=== PATIENT | female | born 1980 | race Caucasian/White ===

== ENCOUNTER 2019-05-12 04:10 | Emergency (ER) | payer MEDICARE ==
[~2019-05-12] VITALS: Ht 172.7 cm; Wt 127.0 kg
[2019-05-12 05:09] LABS: CHLORIDE 109 mEq/L (98-107)
[2019-05-12 05:14] LABS: ETHANOL BLOOD 44 mg/dL
[2019-05-12 05:28] LABS: BASOPHILS % 1.2 % (0.0-2.0); EOSINOPHILS % 3.3 % (0.0-5.0); HEMATOCRIT. 36.3 % (36.0-48.0); HEMOGLOBIN. 11.7 g/dL (12.0-16.0); LYMPHOCYTES % 30.3 % (20.0-50.0); MEAN CORPUSCULAR VOLUME 77.3 fL (81.0-99.0); MEAN PLATELET VOLUME 6.7 fl (7.4-10.4); MONOCYTES % 8.6 % (2.0-8.0); NEUTROPHILS % 56.6 % (40.0-76.0); PLATELET 335 x1000/uL (130-400); RED BLOOD CELL COUNT 4.69 mill/uL (4.2-5.4); RED CELL DISTRIBUTION WIDTH 18.3 % (11.6-14.6)
[2019-05-12] MEDS: LITHIUM CARBONATE 150 MG CAPSULE PO SCH ×2 (05:37→13:03)
[2019-05-12] MEDS ORDERED: DIPHENHYDRAMINE 25MG CAPSULE PO ONE (06:00)
[2019-05-12 10:50] LABS: CLARITY URINE CLOUDY (CLEAR); COLOR URINE YELLOW (YELLOW); KETONES URINE NEGATIVE (NEGATIVE); LEUKOCYTE ESTERASE URINE 2+ (NEGATIVE); NITRITE URINE NEGATIVE (NEGATIVE); OCCULT BLOOD URINE NEGATIVE (NEGATIVE); PH URINE 5.5 (4.5-8.0); PROTEIN URINE NEGATIVE (NEGATIVE); SPECIFIC GRAVITY URINE 1.025 (1.005-1.030)
[2019-05-12] MEDS ORDERED: NICOTINE 7MG PATCH TD ONE (11:15)
[2019-05-12 11:34] LABS: *BARBITURATES SCREEN URINE NEGATIVE (NEGATIVE); *BENZODIAZEPINES SCREEN URINE NEGATIVE (NEGATIVE); *COCAINE SCREEN URINE NEGATIVE (NEGATIVE)
[2019-05-12 11:35] LABS: CANNABINOID URINE SCREEN NEGATIVE (NEGATIVE); METHADONE URINE SCREEN NEGATIVE (NEGATIVE); OPIATES URINE SCREEN NEGATIVE (NEGATIVE)
[2019-05-12 11:36] LABS: PHENCYCLIDINE URINE SCREEN NEGATIVE (NEGATIVE)
[2019-05-12 11:40] LABS: *AMPHETAMINES SCREEN URINE PRESUMTIVE POSITIVE (NEGATIVE)
[2019-05-12] MEDS ORDERED: CEPHALEXIN 250MG CAPSULE PO ONE (12:30)
[2019-05-12 17:49] VITALS: BP 125/76
== END 2019-05-12 19:28 | disposition home or self-care (01) ==
LOC: ER 04:10
DX: F15.129 Other stimulant abuse with intoxication, unspecified (principal); N39.0 Urinary tract infection, site not specified; F10.129 Alcohol abuse with intoxication, unspecified; F20.9 Schizophrenia, unspecified; F31.9 Bipolar disorder, unspecified; J45.909 Unspecified asthma, uncomplicated; R45.851 Suicidal ideations; I10 Essential (primary) hypertension; Y90.2 Blood alcohol level of 40-59 mg/100 ml
CPT/HCPCS: 36415; 80178; 80305; 80320; 81025; 82962; 99284; G0480

== ENCOUNTER 2019-05-12 22:23 | Emergency (ER) | payer MEDICARE ==
[~2019-05-12] VITALS: Ht 172.7 cm; Wt 104.0 kg
[2019-05-13 01:25] LABS: CHLORIDE 113 mEq/L (98-107)
[2019-05-13 01:28] LABS: BASOPHILS % 1.2 % (0.0-2.0); EOSINOPHILS % 3.2 % (0.0-5.0); HEMATOCRIT. 33.9 % (36.0-48.0); HEMOGLOBIN. 11.2 g/dL (12.0-16.0); LYMPHOCYTES % 37.9 % (20.0-50.0); MEAN CORPUSCULAR HEMOGLOBIN 25.2 pg (28.0-32.0); MEAN CORPUSCULAR VOLUME 76.7 fL (81.0-99.0); MEAN PLATELET VOLUME 6.5 fl (7.4-10.4); MONOCYTES % 6.1 % (2.0-8.0); NEUTROPHILS % 51.6 % (40.0-76.0); PLATELET 339 x1000/uL (130-400); RED BLOOD CELL COUNT 4.43 mill/uL (4.2-5.4)
[2019-05-13 01:29] LABS: ETHANOL BLOOD 139 mg/dL
[2019-05-13 02:04] LABS: CLARITY URINE CLEAR (CLEAR); COLOR URINE YELLOW (YELLOW); KETONES URINE NEGATIVE (NEGATIVE); LEUKOCYTE ESTERASE URINE NEGATIVE (NEGATIVE); NITRITE URINE NEGATIVE (NEGATIVE); OCCULT BLOOD URINE NEGATIVE (NEGATIVE); PROTEIN URINE NEGATIVE (NEGATIVE); SPECIFIC GRAVITY URINE 1.007 (1.005-1.030); UROBILINOGEN URINE 0.2 E.U./dL (0.2-1.0)
[2019-05-13 02:15] LABS: *AMPHETAMINES SCREEN URINE NEGATIVE (NEGATIVE); *BARBITURATES SCREEN URINE NEGATIVE (NEGATIVE); *BENZODIAZEPINES SCREEN URINE NEGATIVE (NEGATIVE); *COCAINE SCREEN URINE NEGATIVE (NEGATIVE); METHADONE URINE SCREEN NEGATIVE (NEGATIVE); OPIATES URINE SCREEN NEGATIVE (NEGATIVE)
[2019-05-13 02:16] LABS: CANNABINOID URINE SCREEN NEGATIVE (NEGATIVE); PHENCYCLIDINE URINE SCREEN NEGATIVE (NEGATIVE)
[2019-05-13] MEDS ORDERED: NICOTINE 7MG PATCH TD ONE (11:15)
[2019-05-14] MEDS ORDERED: NICOTINE 7MG PATCH TD ONE (11:45)
[2019-05-14 13:30] VITALS: BP 114/68
== END 2019-05-14 13:43 | disposition home or self-care (01) ==
LOC: ER 22:23
DX: F10.129 Alcohol abuse with intoxication, unspecified (principal); R51 Headache; F32.9 Major depressive disorder, single episode, unspecified; N39.0 Urinary tract infection, site not specified; R45.851 Suicidal ideations; J45.909 Unspecified asthma, uncomplicated; F17.210 Nicotine dependence, cigarettes, uncomplicated; F15.10 Other stimulant abuse, uncomplicated; F20.9 Schizophrenia, unspecified; Y90.6 Blood alcohol level of 120-199 mg/100 ml; Z90.49 Acquired absence of other specified parts of digestive tract; Z88.8 Allergy status to other drugs, medicaments and biological substances; W01.0XXA Fall on same level from slipping, tripping and stumbling without subsequent striking against object, initial encounter; Y93.89 Activity, other specified; Y92.89 Other specified places as the place of occurrence of the external cause
CPT/HCPCS: 81025; 99284

== ENCOUNTER 2020-10-21 14:43 | Emergency (ER) | payer MEDICARE, MEDICAID ==
[~2020-10-21] VITALS: Ht 162.6 cm; Wt 131.0 kg
[2020-10-21] MEDS ORDERED: LITHIUM CARBONATE 150 MG CAPSULE PO SCH (16:00)
[2020-10-21 16:23] VITALS: BP 123/87
== END 2020-10-21 16:24 | disposition home or self-care (01) ==
LOC: ER 14:43
DX: Z76.0 Encounter for issue of repeat prescription (principal); J45.909 Unspecified asthma, uncomplicated; Z90.49 Acquired absence of other specified parts of digestive tract; Z88.8 Allergy status to other drugs, medicaments and biological substances; Z98.890 Other specified postprocedural states
CPT/HCPCS: 99283

== ENCOUNTER 2020-10-24 11:24 | Emergency (ER) | payer MEDICARE, MEDICAID ==
[~2020-10-24] VITALS: Ht 170.2 cm; Wt 140.0 kg
[2020-10-24 12:48] LABS: COLOR URINE YELLOW (YELLOW); KETONES URINE NEGATIVE (NEGATIVE); LEUKOCYTE ESTERASE URINE NEGATIVE (NEGATIVE); NITRITE URINE NEGATIVE (NEGATIVE); OCCULT BLOOD URINE NEGATIVE (NEGATIVE); PH URINE 5.5 (4.5-8.0); PROTEIN URINE NEGATIVE (NEGATIVE); SPECIFIC GRAVITY URINE 1.015 (1.005-1.030); UROBILINOGEN URINE 0.2 E.U./dL (0.2-1.0)
[2020-10-24 12:54] LABS: CLARITY URINE CLEAR (CLEAR)
[2020-10-24 12:54] LABS: EOSINOPHILS % 3.7 % (0.0-5.0); HEMATOCRIT. 37.4 % (36.0-48.0); HEMOGLOBIN. 12.6 g/dL (12.0-16.0); LYMPHOCYTES % 34.4 % (20.0-50.0); MEAN CORPUSCULAR HEMOGLOBIN 29.6 pg (28.0-32.0); MEAN CORPUSCULAR VOLUME 87.9 fL (81.0-99.0); MEAN PLATELET VOLUME 6.4 fl (7.4-10.4); MONOCYTES % 7.3 % (2.0-8.0); NEUTROPHILS % 53.6 % (40.0-76.0); PLATELET 319 x1000/uL (130-400); RED BLOOD CELL COUNT 4.26 mill/uL (4.2-5.4); RED CELL DISTRIBUTION WIDTH 13.7 % (11.6-14.6)
[2020-10-24 13:00] LABS: CHLORIDE 114 mEq/L (98-107)
[2020-10-24 13:07] LABS: ETHANOL BLOOD 46 mg/dL
[2020-10-24 13:16] LABS: *BARBITURATES SCREEN URINE NEGATIVE (NEGATIVE); *BENZODIAZEPINES SCREEN URINE NEGATIVE (NEGATIVE); *COCAINE SCREEN URINE NEGATIVE (NEGATIVE)
[2020-10-24 13:17] LABS: CANNABINOID URINE SCREEN NEGATIVE (NEGATIVE); METHADONE URINE SCREEN NEGATIVE (NEGATIVE); OPIATES URINE SCREEN NEGATIVE (NEGATIVE); PHENCYCLIDINE URINE SCREEN NEGATIVE (NEGATIVE)
[2020-10-24 13:36] LABS: *AMPHETAMINES SCREEN URINE PRESUMTIVE POSITIVE (NEGATIVE)
[2020-10-24] MEDS ORDERED: LORAZEPAM 0.5MG TABLET PO NR (16:15)
[2020-10-24] MEDS ORDERED: NICOTINE 21MG PATCH TD NR (16:30)
[2020-10-25] MEDS ORDERED: LORAZEPAM 1MG TABLET PO ONE (07:00)
[2020-10-25] MEDS ORDERED: NICOTINE 21MG PATCH TD ONE (07:00)
[2020-10-25 11:34] VITALS: BP 118/92
== END 2020-10-25 11:44 | disposition home or self-care (01) ==
LOC: ER 11:24
DX: F32.9 Major depressive disorder, single episode, unspecified (principal); F15.10 Other stimulant abuse, uncomplicated; R45.851 Suicidal ideations; J45.909 Unspecified asthma, uncomplicated; F14.10 Cocaine abuse, uncomplicated; F10.10 Alcohol abuse, uncomplicated; Y90.2 Blood alcohol level of 40-59 mg/100 ml; Z59.0 Homelessness; Z90.49 Acquired absence of other specified parts of digestive tract; Z98.84 Bariatric surgery status; Z88.8 Allergy status to other drugs, medicaments and biological substances
CPT/HCPCS: 36415; 80053; 80178; 80305; 80307; 80320; 80329; 81003; 85025; 93005; 99285; G0480

== ENCOUNTER 2022-10-25 16:39 | Emergency (ER) | payer MEDICARE, MEDICAID ==
[~2022-10-25] VITALS: Ht 172.7 cm; Wt 136.0 kg
[2022-10-25] MEDS ORDERED: SODIUM CHLORIDE 0.9% 1,000 ML IV ONE (17:30)
[2022-10-25] MEDS ORDERED: NICOTINE 21MG PATCH TD ONE (18:00)
[2022-10-25 19:15] LABS: CLARITY URINE CLEAR (CLEAR); COLOR URINE YELLOW (YELLOW); KETONES URINE NEGATIVE (NEGATIVE); LEUKOCYTE ESTERASE URINE TRACE (NEGATIVE); NITRITE URINE NEGATIVE (NEGATIVE); OCCULT BLOOD URINE NEGATIVE (NEGATIVE); PROTEIN URINE NEGATIVE (NEGATIVE); SPECIFIC GRAVITY URINE 1.012 (1.005-1.030); UROBILINOGEN URINE 0.2 E.U./dL (0.2-1.0)
[2022-10-25 19:36] LABS: *BARBITURATES SCREEN URINE NEGATIVE (NEGATIVE); *BENZODIAZEPINES SCREEN URINE NEGATIVE (NEGATIVE); CANNABINOID URINE SCREEN NEGATIVE (NEGATIVE); METHADONE URINE SCREEN NEGATIVE (NEGATIVE); OPIATES URINE SCREEN NEGATIVE (NEGATIVE); PHENCYCLIDINE URINE SCREEN NEGATIVE (NEGATIVE)
[2022-10-25 19:41] LABS: CHLORIDE 109 mEq/L (98-107)
[2022-10-25 19:48] LABS: *AMPHETAMINES SCREEN URINE PRESUMTIVE POSITIVE (NEGATIVE); *COCAINE SCREEN URINE PRESUMTIVE POSITIVE (NEGATIVE)
[2022-10-25 19:50] LABS: ETHANOL BLOOD 162 mg/dL
[2022-10-25 19:57] LABS: EOSINOPHILS % 4.1 % (0.0-5.0); HEMATOCRIT. 35.9 % (36.0-48.0); HEMOGLOBIN. 11.3 g/dL (12.0-16.0); LYMPHOCYTES % 36.8 % (20.0-50.0); MEAN CORPUSCULAR HEMOGLOBIN 24.4 pg (28.0-32.0); MEAN CORPUSCULAR VOLUME 77.4 fL (81.0-99.0); MEAN PLATELET VOLUME 6.7 fl (7.4-10.4); NEUTROPHILS % 52.1 % (40.0-76.0); PLATELET 395 x1000/uL (130-400); RED BLOOD CELL COUNT 4.64 mill/uL (4.2-5.4)
[2022-10-25 20:02] LABS: HCG SCREEN NEGATIVE
[2022-10-25] MEDS ORDERED: ACETAMINOPHEN 650MG/20.3ML UDC PO NR (21:15)
[2022-10-25] MEDS ORDERED: ACETAMINOPHEN 325MG TABLET PO ONE (21:30)
[2022-10-25 23:20] VITALS: BP 110/61
== END 2022-10-25 23:30 | disposition home or self-care (01) ==
LOC: ER 16:39
DX: T51.0X1A Toxic effect of ethanol, accidental (unintentional), initial encounter (principal); G92.8 Other toxic encephalopathy; F14.10 Cocaine abuse, uncomplicated; F15.10 Other stimulant abuse, uncomplicated; J45.909 Unspecified asthma, uncomplicated; F32.A Depression, unspecified; I10 Essential (primary) hypertension; E66.9 Obesity, unspecified; Z68.42 Body mass index [BMI] 45.0-49.9, adult; Z98.84 Bariatric surgery status; Y90.6 Blood alcohol level of 120-199 mg/100 ml; Z90.49 Acquired absence of other specified parts of digestive tract; Z88.8 Allergy status to other drugs, medicaments and biological substances; Y92.488 Other paved roadways as the place of occurrence of the external cause
CPT/HCPCS: 36415; 70450; 71045; 80053; 80305; 80307; 80320; 80329; 81003; 82140; 82962; 83690; 84703; 85025; 99285; J7030; G0480

== ENCOUNTER 2023-07-21 16:56 | Emergency (ER) | payer MEDICARE, OTHER ==
[~2023-07-21] VITALS: Ht 162.6 cm; Wt 107.0 kg
[2023-07-21 17:01] VITALS: TEMP 98.6; O2SAT 98
[2023-07-21 17:47] LABS: CHLORIDE 114 mEq/L (98-107); INDEX HEMOLYSI 4 (1-3); INDEX ICTERIC 1 (1-4); INDEX LIPEMIC 1 (1-3); SODIUM 139 mEq/L (136-145)
[2023-07-21 17:51] LABS: BASOPHILS % 0.7 % (0.0-2.0); EOSINOPHILS % 3.3 % (0.0-5.0); HEMATOCRIT. 39.1 % (36.0-48.0); HEMOGLOBIN. 12.1 g/dL (12.0-16.0); LYMPHOCYTES % 23.9 % (20.0-50.0); MEAN CORPUSCULAR HEMOGLOBIN 30.2 pg (28.0-32.0); MEAN CORPUSCULAR HGB CONC 31.1 g/dL (31.0-37.0); MEAN CORPUSCULAR VOLUME 97.1 fL (81.0-99.0); MEAN PLATELET VOLUME 6.6 fl (7.4-10.4); MONOCYTES % 7.5 % (2.0-8.0); NEUTROPHILS % 64.6 % (40.0-76.0); PLATELET 251 x1000/uL (130-400); POTASSIUM 3.8 mEq/L (3.5-5.1); RED BLOOD CELL COUNT 4.03 mill/uL (4.2-5.4); RED CELL DISTRIBUTION WIDTH 15.5 % (11.6-14.6)
[2023-07-21 17:53] LABS: HCG SCREEN NEGATIVE
[2023-07-21 17:58] LABS: ALANINE AMINOTRANSFERASE 107 IU/L (13-61); ALBUMIN 2.8 g/dL (3.4-5.0); ASPARTATE AMINOTRANSFERASE 215 IU/L (15-37); BILIRUBIN TOTAL 0.5 mg/dL (0.1-1.0); CALCIUM 8.3 mg/dL (8.5-10.1); CARBON DIOXIDE 17 mEq/L (21-32); CREATININE 0.7 mg/dL (0.6-1.3); ETHANOL BLOOD 243 mg/dL (-10); GLUCOSE 113 mg/dL (70-105); PROTEIN TOTAL 6.2 g/dL (6.0-8.3); UREA NITROGEN BLOOD 7 mg/dL (7-21)
[2023-07-21] MEDS ORDERED: NICOTINE 7MG PATCH TD ONE (19:45)
[2023-07-21] MEDS ORDERED: CHLORDIAZEPOXIDE 25MG CAPSULE PO ONE (19:45)
[2023-07-21 20:00] VITALS: BP 138/80; PULSE 70; RESP 15
== END 2023-07-21 20:58 | disposition home or self-care (01) ==
LOC: ER 16:56
DX: F10.129 Alcohol abuse with intoxication, unspecified (principal); D64.9 Anemia, unspecified; J45.909 Unspecified asthma, uncomplicated; F31.9 Bipolar disorder, unspecified; I10 Essential (primary) hypertension; Z90.49 Acquired absence of other specified parts of digestive tract; Y90.8 Blood alcohol level of 240 mg/100 ml or more
CPT/HCPCS: 36415; 80053; 80320; 84703; 85025; 99283; G0480

== ENCOUNTER 2025-03-22 14:40 | Emergency (ER) | payer MEDICARE, OTHER ==
[~2025-03-22] VITALS: Ht 170.2 cm; Wt 113.0 kg
[2025-03-22 14:42] VITALS: O2SAT 98
[2025-03-22] MEDS: IBUPROFEN 600MG TABLET PO ONE (15:04)
[2025-03-22 16:57] VITALS: BP 129/79; PULSE 113; RESP 16; TEMP 36.9; O2SAT 100
[2025-03-23] MEDS ORDERED: ESCI10TA PO (11:58)
[2025-03-23] MEDS ORDERED: PRED5TAB PO (11:58)
[2025-03-23] MEDS ORDERED: ALBU18HF2 IH (11:58)
[2025-03-23] MEDS ORDERED: FERR324T4 PO (11:58)
[2025-03-23] MEDS ORDERED: CARI1.5C MT (11:58)
[2025-03-23] MEDS ORDERED: EFEX1 PO (11:58)
[2025-03-23] MEDS ORDERED: LITH600C PO (15:48)
== END 2025-03-22 16:58 | disposition home or self-care (01) ==
LOC: ER 14:40
DX: M25.562 Pain in left knee (principal); J45.909 Unspecified asthma, uncomplicated; E11.9 Type 2 diabetes mellitus without complications; I10 Essential (primary) hypertension; F31.9 Bipolar disorder, unspecified; Z88.8 Allergy status to other drugs, medicaments and biological substances; Z90.49 Acquired absence of other specified parts of digestive tract; Z98.84 Bariatric surgery status; W01.0XXA Fall on same level from slipping, tripping and stumbling without subsequent striking against object, initial encounter; Y93.89 Activity, other specified; Y92.89 Other specified places as the place of occurrence of the external cause; Y99.8 Other external cause status
CPT/HCPCS: 71045; 73562; 99284

== ENCOUNTER 2025-03-22 22:39 | Emergency (ER) | payer MEDICARE ==
[~2025-03-22] VITALS: Ht 172.7 cm; Wt 140.0 kg
[2025-03-22 22:49] VITALS: BP 149/83; PULSE 96; RESP 18; TEMP 36.8; O2SAT 99
[2025-03-23] MEDS ORDERED: ESCI10TA PO (11:58)
[2025-03-23] MEDS ORDERED: PRED5TAB PO (11:58)
[2025-03-23] MEDS ORDERED: FERR324T4 PO (11:58)
[2025-03-23] MEDS ORDERED: ALBU18HF2 IH (11:58)
[2025-03-23] MEDS ORDERED: EFEX1 PO (11:58)
[2025-03-23] MEDS ORDERED: CARI1.5C MT (11:58)
[2025-03-23] MEDS ORDERED: LITH600C PO (15:48)
== END 2025-03-22 23:10 | disposition left against medical advice (07) ==
LOC: ER 22:47
DX: F10.10 Alcohol abuse, uncomplicated (principal); Z53.21 Procedure and treatment not carried out due to patient leaving prior to being seen by health care provider; Y90.9 Presence of alcohol in blood, level not specified

== ENCOUNTER 2025-03-25 17:18 | Emergency (ER) | payer MEDICARE ==
[~2025-03-25] VITALS: Ht 177.8 cm; Wt 90.0 kg
[~2025-03-25 17:18] MED LIST: ALBU18HF2 IH; CARI1.5C MT; EFEX1 PO; ESCI10TA PO; FERR324T4 PO; LITH600C PO; PRED5TAB PO
[2025-03-25 17:27] VITALS: BP 134/80; PULSE 109; RESP 16; TEMP 36.7; O2SAT 96
== END 2025-03-25 21:09 | disposition left against medical advice (07) ==
LOC: ER 17:18
DX: R53.1 Weakness (principal); Z53.21 Procedure and treatment not carried out due to patient leaving prior to being seen by health care provider

== ENCOUNTER 2025-04-09 14:16 | Emergency (ER) | payer MEDICARE ==
[~2025-04-09] VITALS: Ht 165.1 cm; Wt 100.0 kg
[~2025-04-09 14:16] MED LIST changes: -PRED5TAB PO
[2025-04-09 14:19] VITALS: BP 151/98; PULSE 105; RESP 18; TEMP 37.1; O2SAT 100
[2025-04-09] MEDS ORDERED: FLUT9.9S BOTHNSTRLS (16:30)
[2025-04-09] MEDS ORDERED: IBUP-2029 MT (16:31)
[2025-04-09] MEDS: KETOROLAC 30MG/ML VIAL IM ONE (16:40)
[2025-04-09] MEDS: NICOTINE 7MG PATCH TD ONE (16:41)
== END 2025-04-09 17:35 | disposition home or self-care (01) ==
LOC: ER 14:16
DX: F25.9 Schizoaffective disorder, unspecified (principal); F10.90 Alcohol use, unspecified, uncomplicated; Z79.899 Other long term (current) drug therapy; Z88.8 Allergy status to other drugs, medicaments and biological substances; Y90.9 Presence of alcohol in blood, level not specified
CPT/HCPCS: 99283; 96372; J1885